=== PATIENT | male | born 1950 | race Caucasian/White ===

== ENCOUNTER 2020-04-28 19:00 | Emergency (ER) | payer MEDICARE, OTHER ==
[~2020-04-28] VITALS: Ht 167.6 cm; Wt 74.8 kg
[2020-04-28] MEDS ORDERED: LISI20 PO (19:21)
[2020-04-28] MEDS ORDERED: TRAZ50 PO (19:21)
[2020-04-28] MEDS ORDERED: Hydrocodone-Ap1 EA20 PO (19:21)
[2020-04-28 20:02] LABS: Source, Urine Clean Catch
[2020-04-28 20:09] LABS: BASOPHILS ABSOLUTE AUTO 0.02 K/mm3 (0.00-0.23); BASOPHILS PERCENT AUTO 0 % (0-2); EOSINOPHILS ABSOLUTE AUTO 0.02 K/mm3 (0.00-0.68); EOSINOPHILS PERCENT AUTO 0 % (0-6); Hematocrit 42.6 % (37.0-53.0); Hemoglobin 13.9 g/dL (13.5-17.5); IMMATURE GRAN ABSOLUTE AUTO 0.02 K/mm3 (0.00-0.10); IMMATURE GRAN PERCENT AUTO 0 % (0-1); LYMPHOCYTES ABSOLUTE AUTO 1.68 K/mm3 (0.84-5.20); LYMPHOCYTES PERCENT AUTO 15 % (21-46); MONOCYTES ABSOLUTE AUTO 0.83 K/mm3 (0.16-1.47); MONOCYTES PERCENT AUTO 8 % (4-13); Mean Corpuscular HGB 30.6 pg (26.0-34.0); Mean Corpuscular HGB Conc 32.6 g/dL (31.5-36.5); Mean Corpuscular Volume 94 fL (80-100); Mean Platelet Volume 10.4 fL (9.1-12.4); NEUTROPHILS ABSOLUTE AUTO 8.42 K/mm3 (1.96-9.15); NEUTROPHILS PERCENT AUTO 77 % (41-73); Platelet Count 236 K/mm3 (150-400); Red Blood Cell Count 4.54 M/mm3 (4.30-5.90); White Blood Cell Count 10.99 K/mm3 (4.00-11.30)
[2020-04-28 20:13] LABS: Bilirubin, Urine Neg (Neg); Blood, Urine Neg (Neg); Glucose Qualitative, Urine Neg (Neg); Ketones, Urine 4+ (Neg); Leukocyte Esterase, Urine Neg (Neg); Nitrite, Urine Neg (Neg); Protein, Urine Neg (Neg); Urobilinogen, Urine 3+ (Normal); pH, Urine 6.5 (5.0-8.0)
[2020-04-28 20:14] LABS: Appearance, Urine Clear (Clear); Color, Urine Yellow (P-Yellow)
[2020-04-28 20:41] LABS: Alanine Aminotransfer (ALT/SGP 56 U/L (12-78); Albumin, Blood 3.5 g/dL (3.4-5.0); Albumin/Globulin Ratio 1.1 (0.8-1.8); Alk Phos 104 U/L (50-136); Anion Gap 7 mmol/L (6-16); Aspartate Aminotrans (AST/SGOT 42 U/L (12-37); Bilirubin, Total 0.9 mg/dL (0.1-1.0); Blood Urea Nitrogen 13 mg/dL (8-24); Bun/Creatinine Ratio 17.1 (12.0-20.0); CO2, Blood 28 mmol/L (21-32); Chloride, Blood 106 mmol/L (98-108); Creatinine, Blood 0.76 mg/dL (0.60-1.20); Globulin, Blood 3.1 g/dL (2.2-4.0); Glomerular Filtration Rate >60 (60-); Glucose, Blood 98 mg/dL (70-99); Potassium, Blood 3.7 mmol/L (3.5-5.5); Sodium, Blood 141 mmol/L (136-145); Total Protein, Blood 6.6 g/dL (6.4-8.2)
[2020-04-28] MEDS ORDERED: Miralax17 GM PO (21:29)
== END 2020-04-28 21:48 | disposition left against medical advice (07) ==
LOC: ER 19:00
PROVIDERS: Physician Assistant
DX: I11.0 Hypertensive heart disease with heart failure (principal); I50.9 Heart failure, unspecified; I21.4 Non-ST elevation (NSTEMI) myocardial infarction; K59.00 Constipation, unspecified; M79.7 Fibromyalgia; G89.29 Other chronic pain; Z79.899 Other long term (current) drug therapy
CPT/HCPCS: 36415; 71046; 80053; 81003; 83690; 83880; 84484; 85025; 93005; 93010; 99284-25

== ENCOUNTER 2020-04-28 21:52 | Inpatient (IN) | payer MEDICARE, OTHER ==
[~2020-04-28] VITALS: Ht 167.6 cm; Wt 73.5 kg
[~2020-04-28 21:52] MED LIST: Hydrocodone-Ap1 EA20 PO; LISI20 PO; Miralax17 GM PO; TRAZ50 PO
[2020-04-28 22:28] LABS: BASOPHILS ABSOLUTE AUTO 0.02 K/mm3 (0.00-0.23); BASOPHILS PERCENT AUTO 0 % (0-2); EOSINOPHILS ABSOLUTE AUTO 0.03 K/mm3 (0.00-0.68); EOSINOPHILS PERCENT AUTO 0 % (0-6); Hematocrit 40.9 % (37.0-53.0); Hemoglobin 13.5 g/dL (13.5-17.5); IMMATURE GRAN ABSOLUTE AUTO 0.03 K/mm3 (0.00-0.10); IMMATURE GRAN PERCENT AUTO 0 % (0-1); LYMPHOCYTES ABSOLUTE AUTO 1.76 K/mm3 (0.84-5.20); LYMPHOCYTES PERCENT AUTO 16 % (21-46); MONOCYTES ABSOLUTE AUTO 0.77 K/mm3 (0.16-1.47); MONOCYTES PERCENT AUTO 7 % (4-13); Mean Corpuscular Volume 94 fL (80-100); Mean Platelet Volume 10.2 fL (9.1-12.4); NEUTROPHILS ABSOLUTE AUTO 8.18 K/mm3 (1.96-9.15); NEUTROPHILS PERCENT AUTO 76 % (41-73); Platelet Count 244 K/mm3 (150-400); RDW Coefficient Variation 13.9 % (11.7-14.2); RDW Standard Deviation 48.3 fL (35.1-46.3); Red Blood Cell Count 4.36 M/mm3 (4.30-5.90); White Blood Cell Count 10.79 K/mm3 (4.00-11.30)
[2020-04-28 22:43] LABS: Alanine Aminotransfer (ALT/SGP 60 U/L (12-78); Albumin, Blood 3.6 g/dL (3.4-5.0); Alk Phos 114 U/L (50-136); Anion Gap 9 mmol/L (6-16); Aspartate Aminotrans (AST/SGOT 48 U/L (12-37); Blood Urea Nitrogen 13 mg/dL (8-24); Bun/Creatinine Ratio 17.4 (12.0-20.0); CO2, Blood 28 mmol/L (21-32); Calcium, Blood 8.9 mg/dL (8.5-10.1); Chloride, Blood 106 mmol/L (98-108); Creatinine, Blood 0.75 mg/dL (0.60-1.20); Globulin, Blood 3.6 g/dL (2.2-4.0); Glomerular Filtration Rate >60 (60-); Glucose, Blood 104 mg/dL (70-99); Potassium, Blood 3.8 mmol/L (3.5-5.5); Sodium, Blood 143 mmol/L (136-145); Total Protein, Blood 7.2 g/dL (6.4-8.2)
[2020-04-28 23:00] LABS: CHOL/HDL RATIO 4.1; Cholesterol 173 mg/dL (50-200); HDL Cholesterol 42 mg/dL (>39); LDL/HDL RATIO 2.7; Low Density Lipoprotein Chol 113 mg/dL (0-110); Triglycerides 91 mg/dL (30-160); Very Low Density Lipoprot Chol 18 mg/dL (6-32)
--- NOTE | 2020-04-29 00:28 | NUR ---
ASSUMED CARE/TRANSFER NOTE: ASSUMED CARE OF PT AT 2311, RECEVIED REPORT FROM MARYANNE Mtz, ER NURSE AND HAIR WORKER EUGENIA GILL. PT ARRIVED TO UNIT VIA STRETCHER. PT IS ALERT AND ORIENTEDX3. IS ABLE TO RECALL RECENT AND REMOTE EVENTS. LUNG SOUNDS ARE CLEAR, PT DENIES BEING SOB AT THIS TIME. PT IS ON 2L OF O2 VIA NC, WITH SPO2 AT 96% PT DENIES COUGH. PT STATES HE HAS EPIGASTRIC DISCOMFORT. HEART MONITOR READING SINUS WITH PV'S, ST DEPRESSION NOTED, HR IN THE 60-70'S. TR BAND IN PLACE TO RIGHT [id number] INFLATED TO TR BAND, NO HEMATOMA, BLEEDING OR SWELLING TO SITE. PT STATES HE FEELS TINGLING AND NUMBNESS TO BILAT HANDS/FINGERS AND THAT IT IS NORMAL. GOOD CAP REFILL TO ALL EXTREMITES. PT WAS REMINDED NOT TO USE RIGHT HAND FOR ANY LIFTING OR REPOSITIONING. PT STATES HE HAS NO ISSUES WHEN URINATING. PT WAS INSTRUCTED TO USE URINAL, HOWEVER STATES HE DOES NOT FEEL THE URGE AT THE MOMENT. PT C/O CONSTIPATION. PT WAS ORIENTED TO THE ROOM AND CALL LIGHT. UPDATED BY PATIENT. AWATING TO BE TRANSERED TO [facility] VIA [facility]. RAPID COVID TEST PERFORMED. 0000: CALLED AND GAVE REPORT TO [facility] NADYA BELLO. PT C/O CHEST PAIN 08/09, 25MCG OF FENTYNAL GIVEN PER ORDER. 0020: AMBULANCE ARRIVED. BOTH 20G AC IV'S SALINED LOCKED. COVID NEGATIVE, MAILESUE NOTIFIED.
== END 2020-04-29 00:25 | disposition short-term general hospital (02) | DRG 282 ==
LOC: ER 21:52 → ICUW 22:32
PROVIDERS: Emergency Medicine; ADMIT Internal Medicine Interventional Cardiology
PROC: 4A023N7 Measurement of Cardiac Sampling and Pressure, Left Heart, Percutaneous Approach (ICD-10-PCS; principal; 2020-04-28)
PROC: B2111ZZ Fluoroscopy of Multiple Coronary Arteries using Low Osmolar Contrast (ICD-10-PCS; 2020-04-28)
DX: I21.3 ST elevation (STEMI) myocardial infarction of unspecified site (principal); I25.10 Atherosclerotic heart disease of native coronary artery without angina pectoris; I10 Essential (primary) hypertension; F12.10 Cannabis abuse, uncomplicated; M79.7 Fibromyalgia
CPT/HCPCS: 80053; 80061; 84484; 85025; 85347; 93005; 93010; 93454; 96374; 99152; 99285-25; A9270-GY; C1769; C1887; C1894; J1644; J2250; J3010; J7030; Q9967; U0002

== ENCOUNTER 2020-06-02 23:56 | Inpatient (IN) | payer MEDICARE, OTHER ==
[~2020-06-02] VITALS: Ht 170.2 cm; Wt 71.0 kg
[2020-06-03 00:14] LABS: PCO2 Arterial 55.9 mmHg (35-45); PO2 Arterial 162 mmHg (80-100)
[2020-06-03 00:36] LABS: International Normalized Ratio 1.01; Prothrombin Time Results 10.8 Sec (9.7-11.5)
[2020-06-03 00:41] LABS: Alanine Aminotransfer (ALT/SGP 25 U/L (12-78); Albumin, Blood 4.1 g/dL (3.4-5.0); Albumin/Globulin Ratio 1.2 (0.8-1.8); Alk Phos 124 U/L (50-136); Anion Gap 8 mmol/L (6-16); Aspartate Aminotrans (AST/SGOT 25 U/L (12-37); Bilirubin, Total 0.6 mg/dL (0.1-1.0); Blood Urea Nitrogen 21 mg/dL (8-24); Bun/Creatinine Ratio 16.8 (12.0-20.0); CO2, Blood 26 mmol/L (21-32); Calcium, Blood 8.9 mg/dL (8.5-10.1); Chloride, Blood 104 mmol/L (98-108); Creatinine, Blood 1.25 mg/dL (0.60-1.20); Globulin, Blood 3.5 g/dL (2.2-4.0); Glomerular Filtration Rate >60 (60-); Glucose, Blood 162 mg/dL (70-99); Magnesium, Blood 1.7 mg/dL (1.6-2.4); Potassium, Blood 4.3 mmol/L (3.5-5.5); Sodium, Blood 138 mmol/L (136-145); Total Protein, Blood 7.6 g/dL (6.4-8.2)
[2020-06-03] MEDS ORDERED: ROSU5 (00:41)
[2020-06-03] MEDS ORDERED: METO25ER (00:41)
[2020-06-03] MEDS ORDERED: CLOP75 PO (00:41)
[2020-06-03] MEDS ORDERED: NEOPOLHCSU (00:45)
[2020-06-03 01:20] LABS: BASOPHILS ABSOLUTE AUTO 0.03 K/mm3 (0.00-0.23); BASOPHILS PERCENT AUTO 0 % (0-2); EOSINOPHILS ABSOLUTE AUTO 0.01 K/mm3 (0.00-0.68); EOSINOPHILS PERCENT AUTO 0 % (0-6); Hemoglobin 11.2 g/dL (13.5-17.5); IMMATURE GRAN ABSOLUTE AUTO 0.05 K/mm3 (0.00-0.10); IMMATURE GRAN PERCENT AUTO 0 % (0-1); LYMPHOCYTES ABSOLUTE AUTO 1.08 K/mm3 (0.84-5.20); LYMPHOCYTES PERCENT AUTO 8 % (21-46); MONOCYTES ABSOLUTE AUTO 0.92 K/mm3 (0.16-1.47); MONOCYTES PERCENT AUTO 7 % (4-13); Mean Corpuscular HGB 29.3 pg (26.0-34.0); Mean Corpuscular HGB Conc 30.3 g/dL (31.5-36.5); Mean Corpuscular Volume 97 fL (80-100); Mean Platelet Volume 9.4 fL (9.1-12.4); NEUTROPHILS PERCENT AUTO 85 % (41-73); Platelet Count 347 K/mm3 (150-400); RDW Coefficient Variation 14.3 % (11.7-14.2); RDW Standard Deviation 50.4 fL (35.1-46.3); Red Blood Cell Count 3.82 M/mm3 (4.30-5.90); White Blood Cell Count 13.69 K/mm3 (4.00-11.30)
[2020-06-03 04:17] LABS: U Amphetamine Screen Not Detected; U Barbituate Screen Not Detected; U Benzodiazapine Screen Not Detected; U Buprenorphine Screen Not Detected; U Cannabinoids Screen DETECTED; U Cocaine Screen Not Detected; U Methadone Screen Not Detected; U Methamphetamine Screen Not Detected; U Opiates Screen DETECTED; U Oxycodone Screen Not Detected; U Phencyclidine Screen Not Detected; U Propoxyphene Screen Not Detected
--- NOTE | 2020-06-03 04:25 | NUR ---
ZAIRED D-DIMER; CALLED DR. ADAMES TO REPORT D-DIMER OF 1.49; WILL REVIEW AND PUT IN ORDERS.
--- NOTE | 2020-06-03 04:26 | NUR ---
ASSUMED CARE OF PATIENT AT APPROXIMATELY 0340 FROM ED EUGENIA NEGRON. PATIENT ARRIVED TO UNIT VIA STRETCHER; SBA FROM ED TO PCU STRETCHER. PATIENT ALERT AND ORIENTED; ONLY ABLE TO SPEAK A FEW WORDS AT A TIME. PATIENT REPORTS PAIN IN HIS ARMS "SINCE LAST THURSDAY"; MEDICATED PER EMAR; PATIENT REPORTS ITS A DULL PAIN; "THAT FEELS LIKE NERVE PAIN". PATIENT DENIES NUMBNESS, TINGLING, DIZZINESS OR NAUSEA. PATIENT REPORTS HE WAS DIZZY AT HOME. ST ON TELE; OXYGEN SATURATION ABOVE 90% ON 5LPM VIA NC UPON ARRIVAL; TITRATED DOWN TO 2LPM VIA NC. M-SERIES BIPAP USED BY PATIENT FOUR ABOUT 15 MINUTES; REPORTS THE MASK MAKES IT HARD TO BREATH; PATIENT REPORTS "I'LL TRY IT AGAIN IN AN HOUR". ADMISSION COMPLETE EXCEPT FOR MED REC; PATIENT REPORTS WILL NEED TO BE CALLED IN AM WHEN SHE WAKES UP. PIV S/L. PATIENT CURRENTLY RESTING IN BED; CALL LIGHT IN REACH; BED IN LOWEST POSISTION; BED ALARM ON; WILL CONTINUE TO MONITOR AND ASSESS UNTIL END OF SHIFT.
[2020-06-03] MEDS ORDERED: NAPR220 PO (04:33)
--- NOTE | 2020-06-03 10:28 | NUR ---
Echocardiogram completed.
--- NOTE | 2020-06-03 15:06 | NUR ---
SPOKE WITH DR. DINH AND UPDATED ON TROP OF 1.470. VERBAL ORDER GIVEN FOR CARDIOLOGY CONSULT.
[2020-06-03] MEDS ORDERED: Aspir 8181 MG PO (16:38)
[2020-06-03] MEDS ORDERED: PROFERRIN-FORT1 EACH PO (16:39)
[2020-06-03] MEDS ORDERED: METF500 PO (16:40)
[2020-06-03] MEDS ORDERED: METO25ER PO (16:40)
[2020-06-03] MEDS ORDERED: OMEP20ER (16:41)
[2020-06-03] MEDS ORDERED: GABA800 PO (16:41)
--- NOTE | 2020-06-03 17:53 | NUR ---
SHIFT SUMMARY; A/A/OX4 DURING SHIFT. CARDIOLOGY CONSULT THIS AFTERNOON. PENDING TRANSFER AT THIS TIME TO [facility]. REPORTS MIDSTERNAL CHEST WALL PAIN, MEDICATED PER ORDERS THROUGHOUT DAY. HEPARIN INFUSING AT 13UNIT/KG PER ORDERS. WILL CONTINUE TO MONITOR UNTIL CHANGE OF SHIFT.
--- NOTE | 2020-06-03 18:06 | NUR ---
rapid covid-19 test obtained and walked to lab by this RN
--- NOTE | 2020-06-03 19:32 | NUR ---
COBRA TRANSFER; EMS LEFT WITH PATIENT AT 1930 W/ PATIENT BELONGING, HEPARIN GTT ON PUMP [id number]. RATE WAS VERIFIED, MED HX, PMH AND ASSESSMENT REPORT GIVEN TO EMS. PATIENT WALKED OUT WITH EMS. CALLED BOAZ BELLO TO REPORT EMS LEAVING.
== END 2020-06-03 19:30 | disposition short-term general hospital (02) | DRG 280 ==
LOC: ER 23:56 → PCU 06-03 03:14
PROVIDERS: Emergency Medicine; ADMIT Family Medicine
DX: I13.0 Hypertensive heart and chronic kidney disease with heart failure and stage 1 through stage 4 chronic kidney disease, or unspecified chronic kidney disease (principal); J96.22 Acute and chronic respiratory failure with hypercapnia; I21.4 Non-ST elevation (NSTEMI) myocardial infarction; J96.21 Acute and chronic respiratory failure with hypoxia; E43 Unspecified severe protein-calorie malnutrition; N17.9 Acute kidney failure, unspecified; N18.3 Chronic kidney disease, stage 3 (moderate); I50.9 Heart failure, unspecified; J44.9 Chronic obstructive pulmonary disease, unspecified; I25.10 Atherosclerotic heart disease of native coronary artery without angina pectoris; D63.1 Anemia in chronic kidney disease
CPT/HCPCS: 36415; 36600; 71045; 71260; 80053; 82803; 83735; 83880; 84145; 84484; 85025; 85379; 85610; 93005; 93010; 93306; 96374; 99285-25; A9270-GY; J1644; J1650; J1940; J3010; Q9967; U0002